=== PATIENT | male | born 1985 | race Caucasian/White ===

== ENCOUNTER 2018-07-24 18:50 | Emergency (ER) | payer BC ==
[2018-07-24 18:55] VITALS: BP 149/96; PULSE 72; RESP 16; TEMP 98.6
[2018-07-24] MEDS ORDERED: DIPH,PERTUS(ACELL)TETVAC-LF 0.5 ML VIAL IM ONE (19:13)
--- NOTE | 2018-07-24 19:35 | XR ---
EXAMINATION TYPE: XR hand complete RT DATE OF EXAM: 07/24/2018 COMPARISON: NONE HISTORY: Puncture wounds TECHNIQUE: 3 views FINDINGS: Metacarpals appear intact. I see no fracture nor dislocation. There are no erosions. IMPRESSION: Negative right hand exam. No sign of a foreign body.
[2018-07-24] MEDS ORDERED: AMOXIC-POT CLAV 875MG STARTER 2 EACH TABLET PO STA (19:36)
--- NOTE | 2018-07-24 19:39 | XR ---
EXAMINATION TYPE: XR elbow complete LT DATE OF EXAM: 07/24/2018 COMPARISON: NONE HISTORY: Elbow pain TECHNIQUE: 3 views FINDINGS: I see no fracture nor dislocation. Joint spaces are fairly normal. There is no sign of elbo w joint effusion. IMPRESSION: Negative left elbow exam.
--- NOTE | 2018-07-24 19:43 | ED ---
General Adult HPI - General Chief complaint: Animal Bite Stated complaint: Dog bite Time Seen by Provider: 07/24/18 18:55 Source: patient, RN notes reviewed Mode of arrival: ambulatory Limitations: no limitations - History of Present Illness Initial comments: 33-year-old male presents to the emergency department for a chief complaint of dog bite. Patient states this Occurred about one hour prior to arrival. Patient states he went into his sister's home when her dog began to bite him. Patient states he was bitten on the left elbow and forearm as well as the right hand. Patient denies any difficulty moving his fingers besides for his right first finger because it is swollen. Patient is not up-to-date on tetanus. Denies fevers or chills. Patient has no other complaints at this time including shortness of breath, chest pain, abdominal pain, nausea or vomiting, headache, or visual changes. - Related Data Previous Rx's Medication Instructions Recorded Amoxicillin/Potassium Clav 1 tab PO Q12HR #20 tab 07/24/18 [Augmentin 875-125 Tablet] Allergies Allergy/AdvReac Type Severity Reaction Status Date / Time No Known Allergies Allergy Verified 07/24/18 18:55 Review of Systems ROS Statement: Those systems with pertinent positive or pertinent negative responses have been documented in the HPI. ROS Other: All systems not noted in ROS Statement are negative. Past Medical History Past Medical History: Hypertension History of Any Multi-Drug Resistant Organisms: MRSA Date of last positivie culture/infection: 2010 MDRO Source:: leg Past Surgical History: Orthopedic Surgery Additional Past Surgical History / Comment(s): left hand surgery Past Psychological History: Anxiety Smoking Status: Former smoker Past Alcohol Use History: None Reported Past Drug Use History: Marijuana General Exam Limitations: no limitations General appearance: alert, in no apparent distress Head exam: Present: atraumatic, normocephalic, normal inspection Eye exam: Present: normal appearance, PERRL, EOMI. Absent: scleral icterus, conjunctival injection, periorbital swelling ENT exam: Present: normal exam, mucous membranes moist Neck exam: Present: normal inspection. Absent: tenderness, meningismus, lymphadenopathy Respiratory exam: Present: normal lung sounds bilaterally. Absent: respiratory distress, wheezes, rales, rhonchi, stridor Cardiovascular Exam: Present: regular rate, normal rhythm, normal heart sounds. Absent: systolic murmur, diastolic murmur, rubs, gallop, clicks Extremities exam: Present: full ROM (Full range of motion of the left and right upper extremities including the left elbow and right hand.), normal capillary refill (Capillary refill less than 2 seconds and radial pulse 2+ in upper extremities bilaterally), other (Patient has abrasion with puncture wound noted to the left lateral epicondyle. There is also abrasion noted to the left ulnar forearm. 4 puncture wounds noted to the right second digit. No evidence of foreign body.) Neurological exam: Present: alert, oriented X3, CN II-XII intact Psychiatric exam: Present: normal affect, normal mood Course Vital Signs 07/24/18 18:51 Temperature 98.6 F Pulse Rate 72 Respiratory 16 Rate Blood Pressure 149/96 O2 Sat by Pulse 97 Oximetry Medical Decision Making - Medical Decision Making 33-year-old male presents to the emergency department for a dog bite occurring 1 hour prior to arrival. Patient has puncture wound and abrasion noted to the left elbow as well as abrasion to the left ulnar forearm. Full range of motion the left elbow and left wrist and left digit. Patient also has chronic right second digit. Full range of motion the digit. There is swelling noted. No evidence of foreign bodies noted. Neurovascular intact in upper extremity bilaterally. Patient given Augmentin and tetanus shot. X-rays negative for foreign bodies. Patient will be discharged home and follow-up with primary care in 1-2 days. Discussed monitoring for signs of infection in depth. Discussed returning if any of these occur due to possibility of tendon infection, bone infection, or other application. Disposition Clinical Impression: Dog bite Disposition: HOME SELF-CARE Condition: Good Instructions (If sedation given, give patient instructions): Animal Bite (ED) Additional Instructions: Please take antibiotic as directed. Keep areas clean. Please monitor for signs of infection such as spreading or streaking redness, drainage, or fever and return if these occur. Follow-up with primary care in 1-2 days for a wound recheck. Return if you have any other worsening symptoms. Prescriptions: Amoxicillin/Potassium Clav [Augmentin 875-125 Tablet] 1 tab PO Q12HR #20 tab Is patient prescribed a controlled substance at d/c from ED?: No Referrals: Maikol Varner MD [Primary Care Provider] - 1-2 days Time of Disposition: 19:42
== END 2018-07-24 19:54 | disposition home or self-care (01) ==
LOC: EC 18:50
DX: S51.032A Puncture wound without foreign body of left elbow, initial encounter (principal); S61.230A Puncture wound without foreign body of right index finger without damage to nail, initial encounter; S50.812A Abrasion of left forearm, initial encounter; Z87.891 Personal history of nicotine dependence; Z86.14 Personal history of Methicillin resistant Staphylococcus aureus infection; W54.0XXA Bitten by dog, initial encounter; Y92.009 Unspecified place in unspecified non-institutional (private) residence as the place of occurrence of the external cause; Z23 Encounter for immunization
CPT/HCPCS: 90471; 90715; 99283

== ENCOUNTER 2018-10-08 20:30 | Emergency (ER) | payer BC ==
[2018-10-08 21:08] VITALS: BP 148/103; PULSE 70; RESP 18; TEMP 98.6
--- NOTE | 2018-10-08 22:00 | ED ---
General Adult HPI - General Chief complaint: Chest Pain Stated complaint: Rib Pain, no injury Time Seen by Provider: 10/08/18 22:00 Source: patient Mode of arrival: ambulatory Limitations: no limitations - History of Present Illness Initial comments: Dev is a previously healthy 33 who presents to the emergency department today for evaluation of right-sided rib pain. Patient reports he suffers from seasonal ALLERGIES he's had frequent sneezing and coughing. Over the past day he's noted that on the right side he seems to have a rib that hurts very badly whenever he sneezes or coughs. It also hurts when he pushes on it or moves certain directions. It feels better if he doesn't move her feet hold pressure directly over it. He denies any injury. Pain began yesterday is constant in nature worse with movement or palpation. Patient reports he seen a chiropractor the past and been treated for ribs out of place but never had this much pain. Patient has not taken any medication for any treatment for this. Patient reports that he was going and became concerned that and out of place rib tip off his long and he wanted to make sure that everything was okay. - Related Data Previous Rx's Medication Instructions Recorded Amoxicillin/Potassium Clav 1 tab PO Q12HR #20 tab 07/24/18 [Augmentin 875-125 Tablet] Ibuprofen [Motrin] 800 mg PO TID #60 tab 10/08/18 Lidocaine 5% Patch [Lidoderm] 1 patch TOPICAL DAILY #30 patch 10/08/18 Allergies Allergy/AdvReac Type Severity Reaction Status Date / Time No Known Allergies Allergy Verified 10/08/18 21:08 Review of Systems ROS Statement: Those systems with pertinent positive or pertinent negative responses have been documented in the HPI. ROS Other: All systems not noted in ROS Statement are negative. Past Medical History Past Medical History: Hypertension History of Any Multi-Drug Resistant Organisms: MRSA Date of last positivie culture/infection: 2010, MDRO Source:: leg Past Surgical History: Orthopedic Surgery Additional Past Surgical History / Comment(s): left hand surgery, Past Psychological History: Anxiety Smoking Status: Former smoker Past Alcohol Use History: None Reported Past Drug Use History: Marijuana General Exam - General Exam Comments Initial Comments: Physical Exam GENERAL: Patient is well-developed and well-nourished. Patient is nontoxic and well- hydrated and is in no distress. HENT: Normocephalic, Atraumatic. EYES: PERRL, EOMI PULMONARY: Unlabored respirations. No audible rales rhonchi or wheezing was noted. CARDIOVASCULAR: There is a regular rate and rhythm without any murmurs gallops or rubs. ABDOMEN: Soft and nontender with normal bowel sounds. SKIN: Skin is clear with no lesions or rashes and otherwise unremarkable. No rash in a dermatomal pattern over the right ribs indicative of : Deferred NEUROLOGIC: Patient is alert and oriented x3. Moving all extremities spontaneously MUSCULOSKELETAL: Normal extremities with adequate strength and full range of motion. No lower extremity swelling or edema. No calf tenderness. PSYCHIATRIC: Normal psychiatric evaluation Limitations: no limitations Course Vital Signs 10/08/18 21:04 Temperature 98.6 F Pulse Rate 70 Respiratory 18 Rate Blood Pressure 148/103 O2 Sat by Pulse 97 Oximetry Medical Decision Making - Medical Decision Making The patient was seen and evaluated history is obtained from the patient Chest x-ray revealed no rib fractures or injuries no pneumothorax or pneumonia Physical exam patient has no obvious injuries deformities or rash I do suspect the patient likely has a displaced rib and/or pleurisy. We'll treat symptomatically with Motrin and Lidoderm. Patient was given a Lidoderm patch in the ER and a shot of Toradol. I offered to give the patient a large Walter wrap to splint his ribs however he declined stating that he didn't think it would help. This time patient's comfortable to plan for discharge home and outpatient follow-up. Disposition Clinical Impression: Rib pain on right side Disposition: HOME SELF-CARE Instructions (If sedation given, give patient instructions): Costochondritis (ED) Prescriptions: Lidocaine 5% Patch [Lidoderm] 1 patch TOPICAL DAILY #30 patch Ibuprofen [Motrin] 800 mg PO TID #60 tab Is patient prescribed a controlled substance at d/c from ED?: No Referrals: Maikol Varner MD [Primary Care Provider] - 1-2 days
[2018-10-08] MEDS ORDERED: LIDOCAINE 5% PATCH TOPICAL STA (22:24)
[2018-10-08] MEDS ORDERED: KETOROLAC 30 MG/ML 1 ML VIAL IM STA (22:24)
--- NOTE | 2018-10-08 22:30 | XR ---
EXAMINATION: XR chest 2V DATE AND TIME: 10/08/2018 9:32 PM CLINICAL INDICATION: PHH; Pain right ribs TECHNIQUE: Departmental protocol COMPARISON: None FINDINGS: The lungs are clear. The pleural spaces are negative. The cardiac silhouette is not enlarged. The remainder of the mediastinal silhouette is unremarkable. The skeletal structures and soft tissues are negative for acute findings. IMPRESSION: NO ACUTE PROCESS.
== END 2018-10-08 22:50 | disposition home or self-care (01) ==
LOC: EC 20:30
DX: R07.81 Pleurodynia (principal); R05 Cough; R06.7 Sneezing; Z86.14 Personal history of Methicillin resistant Staphylococcus aureus infection; Z87.891 Personal history of nicotine dependence; Z53.29 Procedure and treatment not carried out because of patient's decision for other reasons
CPT/HCPCS: 71046; 99283; 96372; J1885